=== PATIENT | male | born 1945 | race Caucasian/White ===

== ENCOUNTER 2023-11-24 08:44 | Observation (INO) | payer OTHER, MEDICARE ==
[2023-11-24] MEDS: Lactated Ringers 1,000 ML IV ONE (09:32)
[2023-11-24 09:34] LABS: BASOPHILS ABSOLUTE AUTO 0.01 K/uL (0.00-0.20); BASOPHILS PERCENT AUTO 0.2 % (0.0-2.0); EOSINOPHILS ABSOLUTE AUTO 0.19 K/uL (0.00-0.50); EOSINOPHILS PERCENT AUTO 3.2 % (0.0-5.0); HEMATOCRIT 43.3 % (39.0-49.0); HEMOGLOBIN 14.6 g/dL (13.1-16.8); LYMPHOCYTES ABSOLUTE AUTO 1.09 K/uL (0.50-3.50); LYMPHOCYTES PERCENT AUTO 18.3 % (10.0-50.0); MEAN CORPUSCULAR HEMOGLOBIN 31.7 pg (28.2-33.3); MEAN CORPUSCULAR HGB CONC 33.7 g/dL (31.7-36.0); MEAN CORPUSCULAR VOLUME 93.9 fL (84.0-98.0); MONOCYTES ABSOLUTE AUTO 0.73 K/uL (0.00-1.00); MONOCYTES PERCENT AUTO 12.2 % (2.0-14.0); NEUTROPHILS ABSOLUTE AUTO 3.95 K/uL (1.40-7.00); NEUTROPHILS PERCENT AUTO 66.1 % (45.0-80.0); PLATELET COUNT,PLT 152 K/uL (150-350); RED BLOOD CELL COUNT 4.61 M/uL (4.33-5.41); RED CELL DISTRIBUTION WIDTH 13.3 % (11.2-14.1)
[2023-11-24 09:45] LABS: ALBUMIN 3.5 g/dL (3.4-5.0); ANION GAP 11.1 meq/L (7-15); BILIRUBIN TOTAL 0.5 mg/dL (0.2-1.0); CALCIUM 9.1 mg/dL (8.5-10.1); CARBON DIOXIDE,CO2 23.9 mmol/L (21.0-32.0); CREATININE 1.1 mg/dL (0.51-1.17); EST CRCL DRUG DOSING (CG) 54.41 mL/min; MAGNESIUM 1.7 mg/dL (1.8-2.4); POTASSIUM,K 3.8 mmol/L (3.5-5.1)
[2023-11-24 09:47] LABS: PROTHROMBIN TIME 10.2 SEC (9.0-11.1)
[2023-11-24 09:49] LABS: LACTIC ACID 1.7 mmol/L (0.4-2.0)
[2023-11-24 18:02] LABS: ANION GAP 5.7 meq/L (7-15); CALCIUM 9.6 mg/dL (8.5-10.1); CARBON DIOXIDE,CO2 29.3 mmol/L (21.0-32.0); CREATININE 0.99 mg/dL (0.51-1.17); EST CRCL DRUG DOSING (CG) 60.45 mL/min; POTASSIUM,K 4.1 mmol/L (3.5-5.1)
[2023-11-24] MEDS ORDERED: Sodium Chloride 0.9% 10 ML Syringe FLUSH PRN (18:16)
[2023-11-24] MEDS: Take Home: Ondansetron 4 MG Tab.DIS, 5 Tab Pack PO ONE (18:53)
== END 2023-11-24 19:00 | disposition home or self-care (01) ==
LOC: LL.ED 08:44 → INTOOBSV 12:05 → LL.MS 12:05
PROVIDERS: ADMIT Physician Assistant; ATTEND Physician Assistant
DX: U07.1 COVID-19 (principal); E83.42 Hypomagnesemia
CPT/HCPCS: 36415; 71045; 80048; 80053; 83605; 83735; 83880; 84484; 85025; 85610; 93005; 93010; 96361; 96365; 99236; 99285-25; G0378; J3475; J7120; Q0162; U0002